=== PATIENT | male | born 1980 | race Caucasian/White ===

== ENCOUNTER 2016-10-12 09:59 | Emergency (ER) | payer OTHER ==
--- NOTE | 2016-10-12 10:09 | UCPHY ---
[id number] Chief complaint. Open wound HPI. Patient had a cyst removed at the director facilities maintenance's office 5 days ago. The wound was closed with derma polo. This morning the wound came open. It hurts somewhat. Otherwise not red. No fever. He is awaiting pathology report from the director facilities maintenance's office. ROS Constitutional. no fever/chills, no weakness Eyes. no problems with vision ENT. no sore throat, no nasal drainage Cardiovascular. no chest pain Respiratory. no shortness of breath, no cough Abdominal. no abdominal pain, no nausea/vomiting, no diarrhea . no problems urinating MS. no calf pain/swelling, no neck/back pain, no joint pain Skin. Dehiscence of wound from surgical removal of cyst Lymph. no swollen glands Neuro. no headache, no dizziness, no difficulty walking or with speech Past Medical/Surgical History: Healthy Social History: nonsmoker no alcohol Smoking Status: Never smoked Physical Exam: General Appearance: Alert well-developed male mild distress vital signs stable Eyes: Pupils equal and round no pallor or injection. ENT, Mouth: Mucous membranes are moist. Respiratory: There are no retractions, lungs are clear to auscultation. Cardiovascular: Regular rate and rhythm. Gastrointestinal: Abdomen is soft and nontender, no masses, bowel sounds normal. Neurological: Awake and alert, sensory and motor exams grossly normal. Skin: 2.5 cm wound dehiscence with deep cavity where the cyst was removed. No evidence for infection Musculoskeletal: Neck is supple nontender. Extremities symmetrical, full range of motion. Psychiatric: Patient is oriented X 3, there is no agitation. Constitutional: Initial Vital Signs Temperature (C) 98.5 C H 10/12/16 10:11 Heart Rate 85 10/12/16 10:11 Respiratory Rate 18 10/12/16 10:11 Blood Pressure 152/65 H 10/12/16 10:11 O2 Sat (%) 97 10/12/16 10:11 O2 Delivery Mode Room Air Allergies/Adverse Reactions: No Known Allergies Allergy (Verified 02/08/16 20:52) Home Medications: Medication Instructions Recorded NK [No Known Home Meds] 02/08/16 Medical Decision Making Procedures: Procedure: Laceration repair. Verbal consent was obtained from the patient. The 2.5 cm laceration on the posterior right shoulder was anesthetized in the usual fashion. The wound was irrigated, draped and explored to its base with a gloved finger. There were no deep structures involved. No tendon injury was identified. The wound was repaired with 7 4-0 Prolene sutures. The wound repair was simple. The procedure was performed by myself. ED Course/Re-evaluation: Patient remained stable. I left the sutures slightly loose as the cavity does seem to be losing somewhat. I discussed this with the patient and his . Patient and I discussed treatment plan including criteria for return importance of follow-up and further evaluation. They expressed understanding and agreement Differential Diagnosis: I think the derma polo and internal sutures were just under too much tension. There is no evidence for infection though I did consider this. No evidence for abscess Departure - Departure Disposition: Home, Routine, Self-Care Clinical Impression: Laceration Condition: Good Instructions: Care For Your Stitches (ED) Additional Instructions: Keep cut clean and dry though you may shower with you stitches in. After the shower apply some antibiotic ointment and bandage. I did leave the sutures a little bit loose and you may expect some drainage for the next 1-2 days. Return for increased pain or redness or other signs of infection. Stitches out 10 days Referrals: NONE *PRIMARY CARE P,. [Primary Care Provider] - As per Instructions - PQRS PQRS Measurement: 134: Depression screening and followup, PRIME MD-PHQ2 (12 years and older) Over the last 2 weeks, how often have you been bothered by any of the following problems? 1. Feeling down, depressed, or hopeless? 2. Little interest or pleasure in doing things? Patient answered no to both 1 and 2 130: Documentation of medications. Reviewed all patient medications, doses, route and frequency. 226: Do you smoke? No.
[2016-10-12 10:34] VITALS: BP 152/65; PULSE 85; RESP 18; TEMP 209.3; O2SAT 97
== END 2016-10-12 11:14 | disposition home or self-care (01) ==
LOC: CED 09:59
PROC: 0HQBXZZ Repair Right Upper Arm Skin, External Approach (ICD-10-PCS; principal; 2016-10-12)
DX: S41.011A Laceration without foreign body of right shoulder, initial encounter (principal)
CPT/HCPCS: 12001-PO; 99213-PO; G0463-PO